=== PATIENT | female | born 1970 | race Caucasian/White ===

== ENCOUNTER 2019-09-16 16:05 | Emergency (ER) | payer SELFPAY ==
[~2019-09-16] VITALS: Ht 157.5 cm; Wt 52.0 kg
[2019-09-16 17:03] LABS: *COCAINE SCREEN URINE NEGATIVE (NEGATIVE)
[2019-09-16 17:04] LABS: *BARBITURATES SCREEN URINE NEGATIVE (NEGATIVE); *BENZODIAZEPINES SCREEN URINE NEGATIVE (NEGATIVE); CANNABINOID URINE SCREEN NEGATIVE (NEGATIVE); METHADONE URINE SCREEN NEGATIVE (NEGATIVE); OPIATES URINE SCREEN NEGATIVE (NEGATIVE); PHENCYCLIDINE URINE SCREEN NEGATIVE (NEGATIVE)
[2019-09-16 17:05] LABS: *AMPHETAMINES SCREEN URINE PRESUMTIVE POSITIVE (NEGATIVE)
[2019-09-16 17:26] VITALS: BP 122/78
== END 2019-09-16 17:25 | disposition home or self-care (01) ==
LOC: ER 16:05
DX: F15.129 Other stimulant abuse with intoxication, unspecified (principal); R05 Cough; I50.9 Heart failure, unspecified
CPT/HCPCS: 71045; 80305; 81025; 99284